=== PATIENT | male | born 1945 | race Caucasian/White ===

== ENCOUNTER → 2018-06-12 | Emergency (ER) | payer OTHER, MEDICARE, BC ==
[~2018-06-12] MED LIST: Fluorescein Opthalmic Strip ONE
== END ==
LOC: BURERS 23:35
DX: S05.02XA Injury of conjunctiva and corneal abrasion without foreign body, left eye, initial encounter (principal); I10 Essential (primary) hypertension; F17.220 Nicotine dependence, chewing tobacco, uncomplicated; Z79.899 Other long term (current) drug therapy; W22.8XXA Striking against or struck by other objects, initial encounter
CPT/HCPCS: 99283

== ENCOUNTER 2020-12-09 09:55 | Emergency (ER) | payer MEDICARE, BC ==
[2020-12-09] MEDS ORDERED: predniSONE 20 MG TAB ONE (10:07)
[2020-12-09] MEDS ORDERED: hydrOXYzine 25 MG TAB ONE (10:07)
== END 2020-12-09 11:04 | disposition home or self-care (01) ==
LOC: BURERS 09:55
DX: T63.441A Toxic effect of venom of bees, accidental (unintentional), initial encounter (principal); F17.220 Nicotine dependence, chewing tobacco, uncomplicated; I10 Essential (primary) hypertension; Z79.899 Other long term (current) drug therapy
CPT/HCPCS: 99283; J7512

== ENCOUNTER 2021-09-27 10:07 | Emergency (ER) | payer BC, OTHER, MEDICARE ==
[2021-09-27 10:52] LABS: Bilirubin Negative (Negative); Blood, Urine Negative (Negative); Clarity Clear (Clear); Glucose, Urine (Dipstick) Negative (Negative); Ketone, Urine Negative (Negative); Leukocyte Negative (Negative); Nitrite Negative (Negative); Protein, Urine (Dipstick) Negative (Neg-Trace); Specific Gravity, Urine 1.015 (1.005-1.030); Urobilinogen 0.2 mg/dL (Less than 2); pH, Urine 8.5 (5.0-9.0)
== END 2021-09-27 11:32 | disposition home or self-care (01) ==
LOC: BURERS 10:07
DX: U07.1 COVID-19 (principal); I10 Essential (primary) hypertension; E78.00 Pure hypercholesterolemia, unspecified; F17.220 Nicotine dependence, chewing tobacco, uncomplicated
CPT/HCPCS: 71046; 81003

== ENCOUNTER 2022-07-02 10:44 | Outpatient (CLI) | payer BC, OTHER, MEDICARE | END 2022-07-02 10:45 | disposition home or self-care (01) | LOC: BURRAD 10:44 | PROVIDERS: ATTEND Family Medicine | DX: M25.561 Pain in right knee (principal); M17.11 Unilateral primary osteoarthritis, right knee ==